=== PATIENT | female | born 1965 | race Two or more races ===

== ENCOUNTER → 2024-08-16 | Outpatient (CLI) | payer MEDICARE, MEDICAID, SELFPAY | END | disposition home or self-care (01) | LOC: COPL 08:42 | PROVIDERS: Referring Provider Psychiatry & Neurology Neurology; Visit Provider Psychiatry & Neurology Neurology | DX: R41.3 Other amnesia (principal); I10 Essential (primary) hypertension; E78.5 Hyperlipidemia, unspecified; I63.9 Cerebral infarction, unspecified | CPT/HCPCS: 80053; 80061; 82306; 82607; 83036; 84439; 84443; 85025 ==

== ENCOUNTER 2025-11-08 15:04 | Emergency (ER) | payer MEDICARE, MEDICAID, SELFPAY ==
[2025-11-08 15:20] VITALS: BP 124/82; PULSE 98; RESP 18; TEMP 37.7; O2SAT 96; BMI 25.7
--- NOTE | 2025-11-08 15:39 | XR_ITS ---
Study: Chest 1 view. INDICATION: Cough for 4 days. TECHNIQUE: A PA upright chest radiograph at 1547 hours 08 November 2025 demonstrate a low-density infiltrate forming in the left lower lung zone. The lungs are otherwise fully expanded and free from infiltrates or nodules. There are no effusions. Mediastinal structures are narrow and peripheral vessels are normal in distribution. The RPO rotation artifactually emphasizes the descending aorta. IMPRESSION: Early left lung infiltrate.
[2025-11-08] MEDS: ALBUTEROL/IPRATROPIUM (Duoneb) RT SOL 3 ML NEBU INH (16:06)
--- NOTE | 2025-11-08 16:06 | PD.EDURI ---
Upper Respiratory Inf. RME/HPI General Chief Complaint: Dental/Oral/Throat Stated Complaint: COLD/SORE THROAT/NO VOICE X 4 DAYS Time Seen by Provider: 11/08/25 15:29 Source: patient Arrival date/time: 11/08/25 15:04 60-year-old female with a history of hyperlipidemia, hypertension, presents to the emergency room with a chief complaint of sore throat, cough, congestion, fever x 4 days Mode of arrival: ambulatory Limitations: no limitations Related Data Home Medications ?Medication ?Instructions ?Recorded ?Confirmed lisinopril 30 mg tablet 30 mg PO QDAY 04/09/19 12/13/23 aspirin 81 mg tablet,delayed 81 mg PO DAILY 11/22/22 12/13/23 release atorvastatin 80 mg tablet 80 mg PO QDAY 11/22/22 11/22/22 ergocalciferol (vitamin D2) 1,250 1,250 mcg PO QWEEK 11/22/22 12/13/23 mcg (50,000 unit) capsule (Vitamin D2) pantoprazole 20 mg tablet,delayed 20 mg PO QDAY 11/22/22 12/13/23 release amlodipine 10 mg tablet 10 mg PO QDAY 09/01/23 12/13/23 lidocaine 4 % topical patch 1 patch topical 3XD PRN Pain 12/13/23 12/13/23 (Salonpas (lidocaine)) Previous Rx's ?Medication ?Instructions ?Recorded clopidogrel 75 mg tablet 75 mg PO QDAY 30 days #30 tabs 12/15/23 albuterol sulfate 90 mcg/actuation 2 puff inhalation Q6H PRN 11/08/25 aerosol inhaler (Ventolin HFA) shortness of breath or wheezing #6.7 grams amoxicillin 875 mg-potassium 1 tab PO BID 7 days #14 tabs 11/08/25 clavulanate 125 mg tablet benzonatate 100 mg capsule 100 mg PO BID PRN cough #14 caps 11/08/25 Allergies Allergy/AdvReac Type Severity Reaction Status Date / Time No Known Allergies Allergy Verified 11/08/25 15:08 Review of Systems Review of Systems Systems Reviewed: All systems reviewed, normal except as documented Constitutional Constitutional: Reports system reviewed and no additional complaints, except as documented, Denies fatigue, Denies fever(s), Denies headache(s) and Denies weakness Eyes Eyes: Reports system reviewed and no additional complaints, except as documented, Denies blurry vision and Denies change in vision ENT Ears, Nose, Mouth, and Throat: Reports system reviewed and no additional complaints, except as documented, Denies otalgia, Denies headache(s), Denies nasal congestion, Denies throat swelling and Denies vertigo Cardiovascular Cardiovascular: Reports system reviewed and no additional complaints, except as documented, Denies chest pain, Reports dyspnea and Denies dyspnea on exertion Respiratory Respiratory: Reports system reviewed and no additional complaints, except as documented, Reports chest congestion, Reports cough, Reports dyspnea, Denies dyspnea on exertion and Denies wheezing Gastrointestinal Gastrointestinal: Reports system reviewed and no additional complaints, except as documented, Denies abdominal pain, Denies cramping, Denies nausea and Denies vomiting Genitourinary Genitourinary: Reports system reviewed and no additional complaints, except as documented Musculoskeletal Musculoskeletal: Reports system reviewed and no additional complaints, except as documented and Denies back pain Integumentary/Breasts Skin/Breast: Reports system reviewed and no additional complaints, except as documented and Denies wounds Neurologic Neurologic: Reports system reviewed and no additional complaints, except as documented, Denies confusion, Denies headache(s), Denies lack of coordination, Denies vertigo and Denies weakness Psychiatric Psychiatric: Reports system reviewed and no additional complaints, except as documented, Denies anxiety, Denies confusion, Denies depression, Denies paranoia, Denies suicidal ideation and Denies tactile hallucinations Endocrine Endocrine: Reports system reviewed and no additional complaints, except as documented and Denies fatigue Hematologic/Lymphatic Hematologic/Lymphatic: Reports system reviewed and no additional complaints, except as documented and Denies lymphadenopathy Allergic/Immunologic Allergic/Immunologic: Reports system reviewed and no additional complaints, except as documented, Denies throat swelling, Denies urticaria and Denies wheezing Past Medical History Past Medical History NEUROLOGIC: Positive Neurological Disorders, Cerebrovascular Accident and Transient Ischemic Attacks (TIA); Negative Seizures CARDIAC: Positive Cardiac Disorders, Hypercholesterolemia and Hypertension; Negative Congestive Heart Failure RESPIRATORY: Negative Chronic Obstructive Pulmonary Disease (COPD) GASTROINTESTINAL: Positive Gastrointestinal Disorders and Gastroesophageal Reflux Disease GENITOURINARY: Negative Genitourinary Disorders or Renal Disease REPRODUCTIVE: Positive Previous Pregnancies MUSCULOSKELETAL: Positive Musculoskeletal Disorders ENT: Positive Cataracts ENDOCRINE: Positive Endocrine Disorders and Diabetes Mellitus Type 2; Negative Diabetes Mellitus Type 1 HEMATOLOGIC: Negative Blood Disorders PSYCHO/SOCIAL: Positive Anxiety OTHER HISTORY: Positive Anesthesia Reactions (NAUSEA); Negative Blood Transfusions, Blood Transfusion Reaction, Chicken Pox, Measles, Mumps or Cancer Surgical History SURGICAL: Positive Joint Replacement and Hysterectomy; Negative Cardiac Surgery Social History SMOKING STATUS: Never smoker ED Exam General Limitations: Present no limitations General appearance: Present alert and in no apparent distress Head Head exam: Present atraumatic Eye Eye exam: Present normal appearance, PERRL and EOMI ENT ENT exam: Present normal exam, normal oropharynx and mucous membranes moist Neck Neck exam: Present normal inspection, full ROM and trachea midline Chest Chest inspection: Present normal inspection and symmetric chest wall rise Respiratory Respiratory exam: Present normal lung sounds bilaterally Cardiovascular Cardiovascular exam: Present regular rate, normal rhythm and normal heart sounds Abdominal Exam Abdominal exam: Present soft and normal bowel sounds Extremities Exam Extremities exam: Present normal inspection and full ROM Back Exam Back exam: Present normal inspection and full ROM Neurological Exam Neurological exam: Present alert, oriented X3 and CN II-XII intact Psychiatric Psychiatric exam: Present normal affect and normal mood Skin Skin exam: Present warm, dry, intact and normal color Course Quality Measures none Orders Category Date Time Status Bedside COVID-19 Antigen Test NOW Care 11/08/25 15:39 Active Bedside Influenza A&B Antigen Test NOW Care 11/08/25 15:39 Completed XR chest 1V portable Stat Exams 11/08/25 15:39 Completed Acetaminophen Tab [Tylenol Tab] Med 11/08/25 15:39 Discontinued 650 mg PO X1 ONE Albuterol/Ipratr Rt Bernie [Duoneb Rt Bernie] Med 11/08/25 15:39 Discontinued 3 ml INH X1 ONE dexAMETHasone INJ [Decadron Inj] Med 11/08/25 15:39 Discontinued 10 mg PO X1 ONE Vital Signs Vital signs: Vital Signs Temperature 100 F 11/08/25 15:20 Pulse Rate 98 11/08/25 15:20 Respiratory Rate 18 11/08/25 15:20 Blood Pressure 124/82 11/08/25 15:20 Pulse Oximetry (%) 96 11/08/25 15:20 Oxygen Delivery Method Room Air 11/08/25 15:20 Upper Respiratory Infection MDM Narrative MDM Narrative:: 60-year-old female with a history of hyperlipidemia, hypertension, presents to the emergency room with a chief complaint of sore throat, cough, congestion, fever x 4 days Patient is hemodynamically stable and in no apparent distress. Patient is afebrile nontachycardic nontachypneic Physical examination shows clear bilateral lung sounds there is no wheezing or any abnormal breath sounds Chest x-ray shows early pneumonia Patient tested positive for influenza A Patient was discharged and educated to follow-up with primary care provider in the next 24 to 48 hours and return to the emergency room for any evidence of worsening signs or symptoms Patient data External records reviewed:: [facility] previous records Clinical information provided by:: patient Social determinants that could affect healthcare access:: none Patient has the following chronic illnesses:: No chronic illness How is presenting disease/condition affected by chronic disease/condition?: no chronic disease Evaluation data The following diagnostics were reviewed and interpreted by me:: lab results and radiology exam(s) Lab and/or radiology exams considered but not ordered:: Labs and radiology exams considered and ordered Interpretation Summary: Chest [id number]: A PA upright chest radiograph at 1547 hours 08 November 2025 demonstrate a low-density infiltrate forming in the left lower lung zone. The lungs are otherwise fully expanded and free from infiltrates or nodules. There are no effusions. Mediastinal structures are narrow and peripheral vessels are normal in distribution. The RPO rotation artifactually emphasizes the descending aorta. IMPRESSION: Early left lung infiltrate. Medications / Prescriptions Medications or Prescriptions considered but not ordered:: Medication given Medication administrations:: Medication Administration History Discontinued Medications Acetaminophen (Acetaminophen 325 Mg Tablet) 650 mg PO X1 ONE Stop: 11/08/25 15:40 Last Admin: 11/08/25 16:37 Dose: 650 mg Documented By: LORENA Albuterol/Ipratropium (Albuterol/Ipratropium (Duoneb) Rt Bernie 3 Ml Nebu) 3 ml INH X1 ONE Stop: 11/08/25 15:40 Last Admin: 11/08/25 16:06 Dose: 3 ml Documented By: [email or web address] Dexamethasone Sodium Phosphate (Dexamethasone Sod Phos Inj 10 Mg/Ml Vial) 10 mg PO X1 ONE Stop: 11/08/25 15:40 Last Admin: 11/08/25 16:38 Dose: 10 mg Documented By: LORENA Medication given Consultations Consultation(s) initiated? (list below): No Diagnosis Upper Respiratory Differential Diagnosis: upper respiratory infection, viral infection, bronchitis, influenza and other (Community-acquired pneumonia) Most likely diagnosis given after review of the tests above:: Influenza A Admission Indicated Admission indicated?: not indicated Admission Request Was there a request for admission?: No Disposition Plan Disposition Plan: Discharge Discharge Attestation Discharge Attestation: The patient and all family members were given an opportunity to ask questions and understood the discharge instructions. Discharge instructions specifically effects, indications for sooner follow up or return to the emergency department, and the expected course of current diagnosis. Patient condition: Stable Discharge Plan Plan Patient Disposition: HOME (Self Care) Discharge Disposition comment: Stable Prescriptions/Referrals Prescriptions/Med Rec: New albuterol sulfate [Ventolin HFA] 90 mcg/actuation HFA aerosol inhaler 2 puff inhalation Q6H PRN (Reason: shortness of breath or wheezing) Qty: 6.7 0RF amoxicillin-pot clavulanate 875-125 mg tablet 1 tab PO BID 7 Days Qty: 14 0RF benzonatate 100 mg capsule 100 mg PO BID PRN (Reason: cough) Qty: 14 0RF No Action lisinopril 30 mg Tablet 30 mg PO QDAY aspirin 81 mg Tablet,Delayed Release (Dr/Ec) 81 mg PO DAILY pantoprazole 20 mg Tablet,Delayed Release (Dr/Ec) 20 mg PO QDAY ergocalciferol (vitamin D2) [Vitamin D2] 1,250 mcg (50,000 unit) Capsule 1,250 mcg PO QWEEK atorvastatin 80 mg Tablet 80 mg PO QDAY amlodipine 10 mg Tablet 10 mg PO QDAY lidocaine [Salonpas (lidocaine)] 4 % Adhesive Patch,Medicated 1 patch TOPICAL 3XD MDD 4 patches PRN (Reason: Pain) clopidogrel 75 mg Tablet 75 mg PO QDAY 30 Days Qty: 30 1RF Problem List Clinical Impression: Community acquired pneumonia Patient/Caregiver Discharge Instructions Education Materials: ED Pneumonia (Adult) Additional Instructions: Por favor, consulte con noble m?dico de cabecera en las pr?ximas 24 a 48 horas. Los antibi?ticos se env?an a noble farmacia; rec?jalos y t?melos seg?n lo indicado. Noble radiograf?a de t?rax muestra neumon?a temprana. Si hay alguna evidencia de empeoramiento de los signos o s?ntomas, regrese a la hemalatha de emergencias de inmediato. Print Language: Luxembourgish Stand Alone Forms: Marina Award Info., Work/School Release, Patient Portal Info Letter PA/INVENTORY ADMINISTRATOR Supervising Physician PA/INVENTORY ADMINISTRATOR Supervising Physician: Dr. Ruffin
[2025-11-08 16:07] VITALS: PULSE 105; RESP 20; O2SAT 99
[2025-11-08] MEDS: ACETAMINOPHEN 325 MG TABLET 650 MG PO (16:37)
== END 2025-11-08 16:45 | disposition home or self-care (01) ==
PROVIDERS: Emergency Provider Family Medicine
DX: J18.9 Pneumonia, unspecified organism (principal)
CPT/HCPCS: 71045; 87502; 87635; 94640; 99283; A9270; J1100